=== PATIENT | male | born 1995 | race Caucasian/White ===

== ENCOUNTER 2017-12-28 14:50 | Emergency (ER) | payer OTHER ==
[~2017-12-28] VITALS: Ht 177.8 cm; Wt 95.4 kg
[2017-12-28 14:57] VITALS: Ht 177.8 cm; Wt 95.4 kg
[2017-12-28 16:09] VITALS: BP 131/76
== END 2017-12-28 16:11 | disposition home or self-care (01) ==
LOC: ED 14:50
DX: M62.830 Muscle spasm of back (principal)
CPT/HCPCS: J1885